=== PATIENT | female | born 1970 ===

== ENCOUNTER 2018-01-12 14:48 | Emergency (ER) | payer MEDICAID, OTHER ==
--- NOTE | 2018-01-12 16:05 | ED PDOC ---
Lower Extremity Pain/Injury Time Seen by Provider: 01/12/18 15:37 Chief Complaint (Nursing): Lower Extremity Problem/Injury History Per: Patient Onset/Duration Of Symptoms: Days (7) Current Symptoms Are (Timing): Still Present Severity: Moderate Pain Scale Rating Of: 4 Additional Complaint(s): Right calf pain and swelling and bruising x 1 week after stepping into pot hole. Printer/heard pop at tme of injury. Has pain on weight bearing and ambulation. Past Medical History Vital Signs: Last Vital Signs Temp 98.5 F 01/12/18 15:39 Pulse 81 01/12/18 15:39 Resp 20 01/12/18 15:39 BP 122/73 01/12/18 15:39 Pulse Ox 98 01/12/18 15:39 - Medical History PMH: No Chronic Diseases - Family History Family History: States: Unknown Family Hx - Home Medications Home Medications: Ambulatory Orders Medication Instructions Recorded Non-Formulary 1 ea .ROUTE Q6 #1 ea 01/12/18 traMADol [Ultram] 50 mg PO Q8 #10 tab 01/12/18 - Allergies Allergies/Adverse Reactions: Allergies Allergy/AdvReac Type Severity Reaction Status Date / Time No Known Allergies Allergy Verified 01/12/18 15:39 Review of Systems Musculoskeletal: Positive for: Other (Right calf pain) Physical Exam - Physical Exam Appears: Positive for: Non-toxic, No Acute Distress Extremity: Positive for: Other (Right lower, swelling and ecchymosis post extending to right mid foot. Achilles tendon palpable but tender at insertion of gastrocnemius. No calf erythema.) - ECG O2 Sat by Pulse Oximetry: 98 Disposition - Clinical Impression Clinical Impression: Achilles tendon tear - Patient ED Disposition Is Patient to be Admitted: No Counseled Patient/Family Regarding: Studies Performed, Diagnosis, Need For Followup, Rx Given - Disposition Referrals: Kendrick Queen DPM [[facility]] - Disposition: Routine/Home Disposition Time: 17:37 Condition: FAIR Prescriptions: Non-Formulary 1 ea .ROUTE Q6 #1 ea traMADol [Ultram] 50 mg PO Q8 #10 tab Instructions: Achilles Tendon Rupture Forms: [employer] (Georgian)
--- NOTE | 2018-01-12 16:47 | CP.PCM.CON ---
History of Present Illness - History of Present Illness History of Present Illness: Podiatry - Dr. Queen 47F seen and evaluated for right calf pain. Mother present at bedside. Patient states last week 01/11/18 she stepped into a pothole and her right foot hyperdorsiflexed and immediately felt a pop behind her leg "like a rock hit her calf." Patient did not seek treatment immediately after injury; admits she was able to ambulate afterwards though c/o moderate pain. Patient relates bruising behind her calf developed a couple days after the injury, additional bruising around the inside of her ankle formed later, and lastly bruising around the front of her kumar formed 2 days prior to today's presentation to the ED. Patient admits that she went to an acupuncture free clinic this past Saturday for treatment, and her asic engineer was concerned regarding the significant amount of bruising she had, so told her to present to ED for further evaluation. At present, patient reports moderate pain in her calf. Admits to taking Aleve for mild relief of symptoms. Denies N/V/F/D/C/SOB/CURTIS/dizziness. Offers no other complaints. Review of Systems - Review of Systems All systems: reviewed and no additional remarkable complaints except (as per HPI ) Meds Home Medications: Home Medication List Medication Instructions Recorded Confirmed Type Non-Formulary 1 ea .ROUTE Q6 #1 ea 01/12/18 Rx traMADol [Ultram] 50 mg PO Q8 #10 tab 01/12/18 Rx Allergies/Adverse Reactions: Allergies Allergy/AdvReac Type Severity Reaction Status Date / Time No Known Allergies Allergy Verified 01/12/18 15:39 Physical Exam - Constitutional Appears: Well, Non-toxic, No Acute Distress - Extremities Exam Additional comments: RLE focused physical exam VASC: DP and PT pulses palpable 2/4. CFT <3 seconds to all digits. Temperature gradient cool to cool. Nonpitting edema noted to posterior leg. NEURO: Gross sensation and motor function intact. DERM: No open lesions noted. Ecchymosis noted to lower calf, inferior to medial malleolus, and diffusely over anterior tibia. ORTHO: Pain on palpation at areas of ecchymosis. Negative Blank test. Questionable palpable dell. MMT deferred secondary to chief complaint. - Neurological Exam Neurological exam: Alert, Oriented x3 - Psychiatric Exam Psychiatric exam: Normal Affect, Normal Mood Results - Vital Signs Recent Vital Signs: Last Vital Signs Temp 98.5 F 01/12/18 15:39 Pulse 81 01/12/18 15:39 Resp 20 01/12/18 15:39 BP 122/73 01/12/18 15:39 Pulse Ox 98 01/12/18 16:06 Assessment & Plan - Assessment and Plan (Free Text) Assessment: 47F with right achilles rupture, likely partial Plan: Patient seen and evaluated Discussed with attending, Dr. Queen R XR reviewed: Negative RLE venous duplex: Negative for DVT Posterior splint applied to RLE; patient to be NWB with crutches Pain regimen per medicine Rx RLE MRI given to patient Patient to follow up with Dr. Queen in office 01/14/18 Thank you for the consult
--- NOTE | 2018-01-12 18:34 | US ---
PROCEDURE: Right lower extremity venous duplex Doppler. HISTORY: r/o RLE DVT COMPARISON: None available. TECHNIQUE: Common femoral, superficial femoral, popliteal and posterior tibial veins were evaluated. Flow was assessed with color Doppler, compressibility, assessment of phasic flow and augmentation response. FINDINGS: COMMON FEMORAL VEIN: Unremarkable. SUPERFICIAL FEMORAL VEIN: Unremarkable. POPLITEAL VEIN: Unremarkable. POSTERIOR TIBIAL VEIN: Unremarkable. OTHER FINDINGS: None. IMPRESSION: No evidence of deep venous thrombosis in the right lower extremity.
--- NOTE | 2018-01-12 18:45 | RAD ---
PROCEDURE: Right Ankle Radiographs. HISTORY: trauma COMPARISON: None FINDINGS: BONES: Normal. No fracture. JOINTS: Normal. No osteoarthritis. Ankle mortise maintained. Talar dome intact SOFT TISSUES: Normal. OTHER FINDINGS: None. IMPRESSION: No evidence of acute fracture or dislocation.
--- NOTE | 2018-01-12 19:31 | RAD ---
PROCEDURE: Right Foot Radiographs. HISTORY: trauma COMPARISON: None. FINDINGS: BONES: Normal. No fracture. JOINTS: Normal. SOFT TISSUES: Normal. OTHER FINDINGS: None. IMPRESSION: No evidence of acute fracture or dislocation.
[2018-01-12 20:09] VITALS: BP 126/80; PULSE 88; RESP 18; TEMP 98.7; O2SAT 99
== END 2018-01-12 20:09 | disposition home or self-care (01) ==
LOC: H.ER 14:48
DX: S86.011A Strain of right Achilles tendon, initial encounter (principal); X50.9XXA Other and unspecified overexertion or strenuous movements or postures, initial encounter; Y92.410 Unspecified street and highway as the place of occurrence of the external cause